=== PATIENT | female | born 1990 | race Caucasian/White ===

== ENCOUNTER 2019-01-06 21:49 | Emergency (ER) | payer OTHER ==
[~2019-01-06] VITALS: Ht 160 cm; Wt 80.4 kg
[2019-01-06 21:57] VITALS: Ht 160 cm; Wt 80.4 kg
[2019-01-07 00:17] VITALS: BP 103/68
== END 2019-01-06 23:50 | disposition short-term general hospital (02) ==
LOC: ED 21:49
DX: O42.013 Preterm premature rupture of membranes, onset of labor within 24 hours of rupture, third trimester (principal); Z3A.36 36 weeks gestation of pregnancy
CPT/HCPCS: Q0092